=== PATIENT | female | born 1950 | race Caucasian/White ===

== ENCOUNTER 2017-10-24 16:39 | Emergency (ER) | payer OTHER ==
--- NOTE | 2017-10-24 17:42 | RAD REPORT ---
EXAM DESCRIPTION: CT - Head Brain Wo Cont - 10/24/2017 5:33 pm CLINICAL HISTORY: Transient alteration of awareness. Paresthesias. COMPARISON: Chest Pa And Lat (2 Views) dated 05/21/2017 TECHNIQUE: All CT scans are performed using dose optimization technique as appropriate and may inclu de automated exposure control or mA/KV adjustment according to patient size. FINDINGS: No intracranial hemorrhage, hydrocephalus or extra-axial fluid collection.No areas of brai n edema or evidence of midline shift. The paranasal sinuses and mastoids are clear. The calvarium is intact. IMPRESSION: No acute intracranial abnormality.
[2017-10-24 17:57] LABS: Absolute Lymphocytes (CBC) 2.1 K/uL (0.7-4.9); Absolute Monocytes 0.6 K/uL (0.1-1.3); Absolute Neutrophil 4.3 K/uL (1.8-8.0); Basophils % 0.8 % (0-1.3); Eosinophils % 2.9 % (0-4.4); Hematocrit 44.5 % (36.0-45.0); Lymphocytes % 28.6 % (15.3-44.8); MCH 29.5 pg (27.0-35.0); MCV 88.8 fL (80-100); Monocytes % 8.8 % (3.3-12.3); RBC Red Blood Cell Count 5.01 M/uL (3.86-4.86)
[2017-10-24 18:01] LABS: Protime INR 0.92
[2017-10-24 18:16] LABS: ALT/SGPT 29 U/L (12-78); AST/SGOT 25 U/L (15-37); Albumin 4.4 g/dL (3.4-5.0); Alkaline Phosphatase 68 U/L (45-117); BUN Blood Urea Nitrogen 16 mg/dL (7-18); Bicarbonate 27 mmol/L (21-32); Bilirubin Direct < 0.1 mg/dL (0-0.2); Bilirubin Total 0.4 mg/dL (0.2-1.0); CKMB Creatine Kinase MB 1.3 ng/mL (0.3-3.6); Creatine Phosphokinase 65 U/L (26-192); Glucose Level 105 mg/dL (74-106); Magnesium 2.3 mg/dL (1.8-2.4); Potassium 4.1 mmol/L (3.5-5.1); Protein, Total 7.9 g/dL (6.4-8.2); Sodium Level 132 mmol/L (136-145)
[2017-10-24] MEDS ORDERED: ASPIRIN 81 MG CHEWABLE TABLET ONE (18:36)
--- NOTE | 2017-10-24 18:38 | EDPHYS ---
Physician Documentation [facility] Name: Katey Standard Age: 66 yrs Sex: Female : 1950 Arrival Date: 10/24/2017 Time: 16:43 Bed 8 Private MD: Jean Diaz ED Physician Rigoberto Sanabria HPI: 10/24 19:34 This 66 yrs old Female presents to ER via Ambulatory with complaints of kdr Weakness, Dizziness \T\ altered sensatioin of left leg. 19:34 The patient presents to the emergency department with paresthesias of the left lower kdr extremity, that is mild. Onset: The symptoms/episode began/occurred suddenly, .75 hour(s) ago. Context: occurred at home, occurred while the patient was at rest. Associated signs and symptoms: Pertinent positives: dizziness, nausea, paresthesias, Light headed, chest pressure. Severity of symptoms: At their worst the symptoms were mild in the emergency department the symptoms are unchanged. Patient's baseline: Neuro: alert and fully oriented, Motor: no deficits, Ambulation: walks without assistance, Speech: normal. The patient has not experienced similar symptoms in the past. The patient has not recently seen a physician. Historical: - Allergies: 16:52 No Known Allergies; hj - Home Meds: 16:52 amlodipine 5 mg tab 1 tab once daily [Active]; hj - PMHx: 16:52 Hypertension; valve leak; hj - PSHx: 16:52 None; hj - Immunization history:: Adult Immunizations up to date. - Social history:: Smoking status: Patient/guardian denies using tobacco, Patient uses alcohol, occasionally. - Ebola Screening: : Patient negative for fever greater than or equal to 101.5 degrees Fahrenheit, and additional compatible Ebola Virus Disease symptoms Patient denies exposure to infectious person Patient denies travel to an Ebola-affected area in the 21 days before illness onset. ROS: 19:34 Constitutional: Negative for fever, chills, and weight loss, Eyes: Negative for injury, kdr pain, redness, and discharge, Neck: Negative for injury, pain, and swelling, Respiratory: Negative for shortness of breath, cough, wheezing, and pleuritic chest pain, Abdomen/GI: Negative for abdominal pain, nausea, vomiting, diarrhea, and constipation, Back: Negative for injury and pain, : Negative for injury, bleeding, discharge, and swelling, MS/Extremity: Negative for injury and deformity, Skin: Negative for injury, rash, and discoloration, Psych: Negative for depression, anxiety, suicide ideation, homicidal ideation, and hallucinations, Allergy/Immunology: Negative for hives, rash, and allergies, Endocrine: Negative for neck swelling, polydipsia, polyuria, polyphagia, and marked weight changes, Hematologic/Lymphatic: Negative for swollen nodes, abnormal bleeding, and unusual bruising. 19:34 Cardiovascular: Positive for chest pain, Chest pressure, Negative for edema, orthopnea, palpitations. 19:34 Neuro: Positive for Light headed, altered sensation to the left lower extremity from the knee down. Exam: 19:34 Constitutional: This is a well developed, well nourished patient who is awake, alert, kdr and in no acute distress. Head/Face: Normocephalic, atraumatic. Eyes: Pupils equal round and reactive to light, extra-ocular motions intact. Lids and lashes normal. Conjunctiva and sclera are non-icteric and not injected. Cornea within normal limits. Periorbital areas with no swelling, redness, or edema. Neck: Trachea midline, no thyromegaly or masses palpated, and no cervical lymphadenopathy. Supple, full range of motion without nuchal rigidity, or vertebral point tenderness. No Meningismus. Chest/axilla: Normal chest wall appearance and motion. Nontender with no deformity. No lesions are appreciated. Cardiovascular: Regular rate and rhythm with a normal S1 and S2. No gallops, murmurs, or rubs. Normal PMI, no JVD. No pulse deficits. Respiratory: Lungs have equal breath sounds bilaterally, clear to auscultation and percussion. No rales, rhonchi or wheezes noted. No increased work of breathing, no retractions or nasal flaring. Abdomen/GI: Soft, non-tender, with normal bowel sounds. No distension or tympany. No guarding or rebound. No evidence of tenderness throughout. Back: No spinal tenderness. No costovertebral tenderness. Full range of motion. Skin: Warm, dry with normal turgor. Normal color with no rashes, no lesions, and no evidence of cellulitis. MS/ Extremity: Pulses equal, no cyanosis. Neurovascular intact. Full, normal range of motion. Psych: Awake, alert, with orientation to person, place and time. Behavior, mood, and affect are within normal limits. 19:34 Neuro: Sensation: numbness, of the lateral aspect of left calf, left lateral ankle, lateral aspect of left foot, left calf, left Achilles, left heel, medial aspect of left calf, left medial ankle, medial aspect of left foot, left teixeira and dorsum of left foot, tingling, light touch is decreased in the . Vital Signs: 16:53 BP 158 / 73; Pulse 69; Resp 18; Temp 97.5(TE); Pulse Ox 99% on R/A; Weight 58.97 kg; Height 5 ft. 1 in. (154.94 cm); Pain 2/10; 18:30 BP 140 / 76; Pulse 71; Resp 18; Pulse Ox 99% on R/A; Pain 0/10; aj1 19:34 BP 123 / 66; Pulse 70; Resp 14; Pulse Ox 96% on R/A; Pain 0/10; aj1 16:53 Body Mass Index 24.56 (58.97 kg, 154.94 cm) NIH Stroke Scale Scores: 17:00 NIHSS Score: 1 aj1 17:23 NIHSS Score: 1 kdr MDM: 17:23 Data reviewed: vital signs, nurses notes, lab test result(s), radiologic studies. kdr Counseling: I had a detailed discussion with the patient and/or guardian regarding: the historical points, exam findings, and any diagnostic results supporting the discharge/admit diagnosis, lab results, radiology results. ED course: Since patient stroke scale of 1, will not initiate code stroke. Explained stroke scale and concerns to patient and . Explained that a transfer may be necessary for further neurology evaluation. 18:37 Patient medically screened. kdr 10/24 17:03 Order name: Basic Metabolic Panel; Complete Time: 19:24 kdr 10/24 17:03 Order name: CBC with Diff; Complete Time: 19:24 kdr 10/24 17:03 Order name: Ckmb; Complete Time: 19:24 kdr 10/24 17:03 Order name: CPK; Complete Time: 19:24 kdr 10/24 17:03 Order name: LFT's; Complete Time: 19:24 kdr 10/24 17:03 Order name: Magnesium; Complete Time: 19:24 kdr 10/24 16:55 Order name: EKG; Complete Time: 16:55 10/24 17:03 Order name: PT-INR; Complete Time: 19:24 [facility] 10/24 17:03 Order name: Ptt, Activated; Complete Time: 19:24 [facility] 10/24 17:03 Order name: Troponin (emerg Dept Use Only); Complete Time: 19:24 [facility] 10/24 17:03 Order name: XRAY Chest (1 view); Complete Time: 19:24 [facility] 10/24 17:22 Order name: CT Head Brain wo Cont; Complete Time: 17:57 [facility] 10/24 18:55 Order name: Urine Dipstick--Ancillary (enter results) [facility] 10/[facility] 17:03 Order name: Cardiac monitoring; Complete Time: 17:08 [facility] 10/24 17:03 Order name: EKG - Nurse/Tech; Complete Time: 17:39 [facility] 10/24 17:03 Order name: IV Saline Lock; Complete Time: 17:39 [facility] 10/24 17:03 Order name: Labs collected and sent; Complete Time: 17:39 [facility] 10/24 17:03 Order name: O2 Per Protocol; Complete Time: 17:08 [facility] 10/24 17:03 Order name: O2 Sat Monitoring; Complete Time: 17:08 [facility] 10/24 17:03 Order name: Urine Dipstick-Ancillary (obtain specimen); Complete Time: 18:52 kdr Administered Medications: 18:43 Drug: Aspirin Chewable Tablet 243 mg Route: PO; aj1 20:04 Follow up: Response: No adverse reaction aj1 Disposition: 10/24/17 18:37 Transfer ordered to [facility]. Diagnosis is Left leg numbness, chest pressure, lightheadness. - Reason for transfer: Higher level of care. - Accepting physician is Hsoptialist at [facility]. - Condition is Fair. - Problem is new. - Symptoms have improved. NIH Stroke Scale - NIH Stroke Score Date: 10/24/2017 Time: 17:00 Total Score = 1 1a. Level of Consciousness (LOC) - 0(Alert) 1b. Level of Consciousness (LOC) (Year \T\ Age) - 0(Both) 1c. LOC Commands (Open \T\ Closes Eyes/Er Rn) - 0(Both) 2. Best Gaze (Lateral Gaze Paresis) - 0(Normal) 3. Visual Field Loss - 0(No visual loss) 4. Facial Palsy - 0(Normal) 5a. Left Arm: Motor (10-second hold) - 0(No drift) 5b. Right Arm: Motor (10-second hold) - 0(No drift) 6a. Left Leg: Motor (5-second hold - always test supine) - 0(No drift) 6b. Right Leg: Motor (5-second hold - always test supine) - 0(No drift) 7. Limb Ataxia (finger/nose \T\ heel/teixeira - test with eyes open) - 0(Absent) 8. Sensory Loss (pinprick arms/legs/face) - 1(Mild to moderate loss) 9. Best Language: Aphasia (description/naming/reading) - 0(No aphasia) 10. Dysarthria (speech clarity - read or repeat words) - 0(Normal) 11. Extinction and Inattention (visual/tactile/auditory/spatial/personal) - 0(No abnormality) Initials: aj1 NIH Stroke Scale - NIH Stroke Score Date: 10/24/2017 Time: 17:23 Total Score = 1 1a. Level of Consciousness (LOC) - 0(Alert) 1b. Level of Consciousness (LOC) (Year \T\ Age) - 0(Both) 1c. LOC Commands (Open \T\ Closes Eyes/Er Rn) - 0(Both) 2. Best Gaze (Lateral Gaze Paresis) - 0(Normal) 3. Visual Field Loss - 0(No visual loss) 4. Facial Palsy - 0(Normal) 5a. Left Arm: Motor (10-second hold) - 0(No drift) 5b. Right Arm: Motor (10-second hold) - 0(No drift) 6a. Left Leg: Motor (5-second hold - always test supine) - 0(No drift) 6b. Right Leg: Motor (5-second hold - always test supine) - 0(No drift) 7. Limb Ataxia (finger/nose \T\ heel/teixeira - test with eyes open) - 0(Absent) 8. Sensory Loss (pinprick arms/legs/face) - 1(Mild to moderate loss) 9. Best Language: Aphasia (description/naming/reading) - 0(No aphasia) 10. Dysarthria (speech clarity - read or repeat words) - 0(Normal) 11. Extinction and Inattention (visual/tactile/auditory/spatial/personal) - 0(No abnormality) Initials: kdr Signatures: Dispatcher [employer] EDMee Keita RN RN aj1 Rigoberto Sanabria MD MD kdr Guadalupe Angelo, BUSINESS CONTROLLER-C BUSINESS CONTROLLER-Csnw Jcarlos Galdamez RN RN hj Corrections: (The following items were deleted from the chart) 20:19 18:37 10/24/2017 18:37 Transfer ordered to [facility]. aj1 Diagnosis is Left leg numbness, chest pressure, lightheadness. Reason for transfer: Higher level of care. Accepting physician is Hsoptialist at [facility]. Condition is Fair. Problem is new. Symptoms have improved. kdr
--- NOTE | 2017-10-24 18:38 | ER ---
Nurse's Notes [facility] Name: Katey Standard Age: 66 yrs Sex: Female : 1950 Arrival Date: 10/24/2017 Time: 16:43 Bed 8 Private MD: Jean Diaz Diagnosis: Left leg numbness, chest pressure, lightheadness Presentation: 10/24 16:47 Presenting complaint: Patient states: 40 mins ago, i started feeling tingling on both hj my foot, and felt heavy feeling on my chest, started having diarrhea too x 1; reports nausea, non radiating chest pain; denies SOB; reports dizziness; took aspirin 81 mg x 1;. Transition of care: patient was not received from another setting of care. 16:47 Method Of Arrival: Ambulatory 16:50 Onset of symptoms was October 24, 2017. Risk Assessment: Do you want to hurt yourself or hj someone else? Patient reports no desire to harm self or others. Initial Sepsis Screen: Does the patient meet any 2 criteria? No. Patient's initial sepsis screen is negative. Does the patient have a suspected source of infection? No. Patient's initial sepsis screen is negative. Care prior to arrival: None. 16:50 Acuity: KIRTI 3 hj Triage Assessment: 16:52 General: Appears in no apparent distress. uncomfortable, Behavior is calm, cooperative, hj appropriate for age. Pain: Complains of pain in chest. Historical: - Allergies: 16:52 No Known Allergies; hj - Home Meds: 16:52 amlodipine 5 mg tab 1 tab once daily [Active]; hj - PMHx: 16:52 Hypertension; valve leak; hj - PSHx: 16:52 None; hj - Immunization history:: Adult Immunizations up to date. - Social history:: Smoking status: Patient/guardian denies using tobacco, Patient uses alcohol, occasionally. - Ebola Screening: : Patient negative for fever greater than or equal to 101.5 degrees Fahrenheit, and additional compatible Ebola Virus Disease symptoms Patient denies exposure to infectious person Patient denies travel to an Ebola-affected area in the 21 days before illness onset. Screenin:53 Abuse screen: Denies threats or abuse. Denies injuries from another. Nutritional hj screening: No deficits noted. Tuberculosis screening: No symptoms or risk factors identified. Fall Risk None identified. Assessment: 17:00 General: Appears in no apparent distress. comfortable, Behavior is calm, cooperative, aj1 appropriate for age. Pain: Complains of pain in chest Pain does not radiate. Pain currently is 0 out of 10 on a pain scale. at worst was 2 out of 10 on a pain scale. Quality of pain is described as heavy. Neuro: Level of Consciousness is awake, alert, obeys commands, Oriented to person, place, time, situation, Fur Trapper are equal bilaterally Moves all extremities. Full function Gait is steady, Speech is normal, Facial symmetry appears normal, Pupils are PERRLA, Numbness in medial aspect of left calf, left medial ankle and medial aspect of left foot Reports numbness. Cardiovascular: Reports chest pain, lightheadedness, nausea, Denies diaphoresis, fatigue, palpitations, shortness of breath, syncope, vomiting, Heart tones S1 S2 present Patient's skin is warm and dry. Rhythm is sinus rhythm. Respiratory: Airway is patent Respiratory effort is even, unlabored, Respiratory pattern is regular, symmetrical, Breath sounds are clear bilaterally. GI: No signs and/or symptoms were reported involving the gastrointestinal system. : No signs and/or symptoms were reported regarding the genitourinary system. EENT: No signs and/or symptoms were reported regarding the EENT system. Derm: No signs and/or symptoms reported regarding the dermatologic system. Skin is pink, warm \T\ dry. normal. Musculoskeletal: No signs and/or symptoms reported regarding the musculoskeletal system. Circulation, motion, and sensation intact. 17:30 Reassessment: Dr. Sanabria ordered to take patient to CT immediately, but not to call a aj1 code stroke as we will not give this patient TPA based off of NIH stroke scale. 18:30 Reassessment: Patient appears in no apparent distress at this time. No changes from aj1 previously documented assessment. Patient and/or family updated on plan of care and expected duration. Pain level reassessed. Patient is alert, oriented x 3, equal unlabored respirations, skin warm/dry/pink. 19:24 Reassessment: Spoke with Franco at [facility], states that the charge nurse aj1 is on the phone and to please call back. 19:31 Reassessment: Patient and/or family updated on plan of care and expected duration. Pain aj1 level reassessed. General: Appears in no apparent distress. comfortable, Behavior is calm, cooperative, appropriate for age. Pain: Denies pain. Neuro: Level of Consciousness is awake, alert, obeys commands, Oriented to person, place, time, situation, Fur Trapper are equal bilaterally Moves all extremities. Full function Gait is steady, Speech is normal, Facial symmetry appears normal, Pupils are PERRLA, Numbness in medial aspect of left calf, left medial ankle and medial aspect of left foot Reports numbness. Cardiovascular: Heart tones S1 S2 present Patient's skin is warm and dry. Rhythm is sinus rhythm. Respiratory: Airway is patent Respiratory effort is even, unlabored, Respiratory pattern is regular, symmetrical, Breath sounds are clear bilaterally. GI: No signs and/or symptoms were reported involving the gastrointestinal system. : No signs and/or symptoms were reported regarding the genitourinary system. EENT: No signs and/or symptoms were reported regarding the EENT system. Derm: No signs and/or symptoms reported regarding the dermatologic system. Skin is pink, warm \T\ dry. normal. Musculoskeletal: No signs and/or symptoms reported regarding the musculoskeletal system. Circulation, motion, and sensation intact. 19:34 Reassessment: Spoke with Dang at [facility], states they are unable to get aj1 a hold of the charge nurse and this patient has not been assigned to a nurse, and to please call back in 10 minutes. 20:02 Reassessment: Report given to Usha Kirby RN. aj1 Vital Signs: 16:53 BP 158 / 73; Pulse 69; Resp 18; Temp 97.5(TE); Pulse Ox 99% on R/A; Weight 58.97 kg; Height 5 ft. 1 in. (154.94 cm); Pain 2/10; 18:30 BP 140 / 76; Pulse 71; Resp 18; Pulse Ox 99% on R/A; Pain 0/10; aj1 19:34 BP 123 / 66; Pulse 70; Resp 14; Pulse Ox 96% on R/A; Pain 0/10; aj1 16:53 Body Mass Index 24.56 (58.97 kg, 154.94 cm) NIH Stroke Scale Scores: 17:00 NIHSS Score: 1 aj1 17:23 NIHSS Score: 1 kdr ED Course: 16:43 Patient arrived in ED. mr 16:43 Rigoberto Sanabria MD is Attending Physician. kdr 16:43 Jean Diaz MD is Private Physician. mr 16:51 Triage completed. hj 16:53 Arm band placed on right wrist. hj 16:53 Patient has correct armband on for positive identification. Placed in gown. Bed in low hj position. Call light in reach. Side rails up X 1. 16:59 Mee Clinton, RN is Primary Nurse. aj1 17:00 No provider procedures requiring assistance completed. Inserted saline lock: 22 gauge aj1 in left antecubital area, using aseptic technique. Blood collected. 17:33 CT Head Brain wo Cont In Process Unspecified. EDMS 17:33 CT completed. Patient moved to CT via stretcher. Patient moved back from CT. cw1 18:39 X-ray completed. Portable x-ray completed in exam room. Patient tolerated procedure la2 well. 18:43 XRAY Chest (1 view) In Process Unspecified. EDMS 20:03 Patient transferred, IV remains in place. aj1 Administered Medications: 18:43 Drug: Aspirin Chewable Tablet 243 mg Route: PO; aj1 20:04 Follow up: Response: No adverse reaction aj1 Outcome: 18:37 ER care complete, transfer ordered by . kdr 20:04 Transferred by ground EMS to [facility]. aj1 20:04 Condition: stable 20:04 Discharge instructions given to patient, Instructed on the need for transfer, Demonstrated understanding of instructions. 20:19 Patient left the ED. aj1 NIH Stroke Scale - NIH Stroke Score Date: 10/24/2017 Time: 17:00 Total Score = 1 1a. Level of Consciousness (LOC) - 0(Alert) 1b. Level of Consciousness (LOC) (Year \T\ Age) - 0(Both) 1c. LOC Commands (Open \T\ Closes Eyes/Director Trade) - 0(Both) 2. Best Gaze (Lateral Gaze Paresis) - 0(Normal) 3. Visual Field Loss - 0(No visual loss) 4. Facial Palsy - 0(Normal) 5a. Left Arm: Motor (10-second hold) - 0(No drift) 5b. Right Arm: Motor (10-second hold) - 0(No drift) 6a. Left Leg: Motor (5-second hold - always test supine) - 0(No drift) 6b. Right Leg: Motor (5-second hold - always test supine) - 0(No drift) 7. Limb Ataxia (finger/nose \T\ heel/teixeira - test with eyes open) - 0(Absent) 8. Sensory Loss (pinprick arms/legs/face) - 1(Mild to moderate loss) 9. Best Language: Aphasia (description/naming/reading) - 0(No aphasia) 10. Dysarthria (speech clarity - read or repeat words) - 0(Normal) 11. Extinction and Inattention (visual/tactile/auditory/spatial/personal) - 0(No abnormality) Initials: aj1 NIH Stroke Scale - NIH Stroke Score Date: 10/24/2017 Time: 17:23 Total Score = 1 1a. Level of Consciousness (LOC) - 0(Alert) 1b. Level of Consciousness (LOC) (Year \T\ Age) - 0(Both) 1c. LOC Commands (Open \T\ Closes Eyes/Director Trade) - 0(Both) 2. Best Gaze (Lateral Gaze Paresis) - 0(Normal) 3. Visual Field Loss - 0(No visual loss) 4. Facial Palsy - 0(Normal) 5a. Left Arm: Motor (10-second hold) - 0(No drift) 5b. Right Arm: Motor (10-second hold) - 0(No drift) 6a. Left Leg: Motor (5-second hold - always test supine) - 0(No drift) 6b. Right Leg: Motor (5-second hold - always test supine) - 0(No drift) 7. Limb Ataxia (finger/nose \T\ heel/teixeira - test with eyes open) - 0(Absent) 8. Sensory Loss (pinprick arms/legs/face) - 1(Mild to moderate loss) 9. Best Language: Aphasia (description/naming/reading) - 0(No aphasia) 10. Dysarthria (speech clarity - read or repeat words) - 0(Normal) 11. Extinction and Inattention (visual/tactile/auditory/spatial/personal) - 0(No abnormality) Initials: kdr Signatures: Dispatcher [employer] EDMee Keita RN RN aj1 Rigoberto Sanabria MD MD kdr Rivera, Maria mr Garcia, Judy cw1 Jcarlos Galdamez RN RN Analy Schuster2 Corrections: (The following items were deleted from the chart) 16:51 16:47 Presenting complaint: Patient states: 40 mins ago, i started feeling hj tingling on both my foot, and felt heavy feeling on my chest, started having diarrhea too x 1; reports nausea, non radiating chest pain; denies SOB; reports dizziness; hj 16:55 16:53 Pulse 69bpm; Resp 18bpm; Pulse Ox 99% RA; Temp 97.5F Temporal; 58.97 kg; hj Height 5 ft. 1 in.; BMI: 24.5; Pain 2/10; hj
--- NOTE | 2017-10-24 18:47 | RAD REPORT ---
EXAM DESCRIPTION: RAD - Chest Single View - 10/24/2017 6:42 pm CLINICAL HISTORY: chest pressure Chest pain. COMPARISON: Chest Pa And Lat (2 Views) dated 05/21/2017 FINDINGS: Portable technique limits examination quality. The lungs are grossly clear. The heart is normal in size. No displaced fractures. IMPRESSION: No acute intrathoracic process suspected.
[2017-10-24 19:32] LABS: Urine Blood NEGATIVE (NEG); Urine Glucose NEGATIVE (NEG); Urine Protein NEGATIVE (NEG); Urine Specific Gravity 1.015 (1.005-1.030)
--- NOTE | 2017-10-26 06:55 | EKG ---
Test Date: 2017-10-24 Test Time: 17:08:01 Virtual Assistant: VICENTE MEASUREMENT RESULTS: Intervals: Rate: 67 FL: 132 QRSD: 66 QT: 400 QTc: 422 [place]: P: 31 FL: 132 QRS: 37 T: 53 INTERPRETIVE STATEMENTS: Normal sinus rhythm Normal ECG No previous ECG available for comparison Electronically Signed On 10-26-17 06:54:40 CDT by Mac Bahena
== END 2017-10-24 20:19 | disposition short-term general hospital (02) ==
LOC: ER 16:39
DX: R07.89 Other chest pain (principal); R42 Dizziness and giddiness; I10 Essential (primary) hypertension
CPT/HCPCS: 36415; 70450; 71045; 80048; 80076; 81003; 82550; 82553; 82962; 83735; 84484; 85025; 85610; 85730; 93005; 99285